=== PATIENT | female | born 1960 | race Caucasian/White ===

== ENCOUNTER 2018-11-17 14:06 | Emergency (ER) | payer OTHER ==
[2018-11-17] MEDS ORDERED: Acetaminophen/HYDROcodone 325-5 MG Tab ONE (14:20)
[2018-11-17] MEDS ORDERED: Ketorolac 10 MG Tab ONE (14:20)
[2018-11-17] MEDS ORDERED: Ketorolac 60 MG/2 ML SDV IM ONE (14:24)
--- NOTE | 2018-11-17 14:31 | EDM.PDOC ---
ED HPI GENERAL MEDICAL PROBLEM - General Stated Complaint: SIDE PAIN Time Seen by Provider: 11/17/18 14:10 Source of Information: Reports: Patient History Limitations: Reports: No Limitations - History of Present Illness Onset: Today Onset Date: 11/17/18 Onset Time: 08:00 Duration: Getting Worse, Waxing/Waning Location: Reports: Abdomen Quality: Reports: Ache Severity: Severe Improves with: Reports: None Worsens with: Reports: None Associated Symptoms: Denies: Confusion, Chest Pain, Cough, Diaphoresis, Fever/ Chills, Headaches, Nausea/Vomiting, Rash, Seizure, Shortness of Breath, Syncope , Weakness - Related Data Allergies Allergy/AdvReac Type Severity Reaction Status Date / Time codeine Allergy Dizziness Verified 09/28/13 08:08 Penicillins Allergy Rash Verified 09/28/13 08:08 Sulfa (Sulfonamide Allergy Rash Verified 09/28/13 08:08 Antibiotics) ED ROS GENERAL - Review of Systems Review Of Systems: See Below Constitutional: Denies: Fever, Chills HEENT: Denies: Ear Pain, Rhinitis, Throat Pain Respiratory: Denies: Shortness of Breath, Cough, Sputum Cardiovascular: Denies: Chest Pain, Lightheadedness GI/Abdominal: Reports: Abdominal Pain. Denies: Constipation, Diarrhea, Distension, Nausea, Vomiting : Denies: Dysuria, Frequency Musculoskeletal: Denies: Joint Pain, Joint Swelling Skin: Denies: Bruising, Pruritis, Rash Neurological: Denies: Confusion, Dizziness, Syncope, Tingling, Weakness ED EXAM, GENERAL - Physical Exam Exam: See Below Exam Limited By: No Limitations General Appearance: Alert, WD/WN, Moderate Distress Eye Exam: Bilateral Eye: EOMI, PERRL Ears: Normal External Exam, Normal Canal, Hearing Grossly Normal, Normal TMs Ear Exam: Bilateral Ear: Auricle Normal, Canal Normal, TM normal Nose: Normal Inspection, Normal Mucosa, No Blood Throat/Mouth: Normal Inspection, Normal Lips, Normal Teeth, Normal Gums, Normal Oropharynx, Normal Voice, No Airway Compromise Head: Atraumatic, Normocephalic Neck: Normal Inspection, Supple, Non-Tender, Full Range of Motion Respiratory/Chest: No Respiratory Distress, Lungs Clear, Normal Breath Sounds, No Accessory Muscle Use, Chest Non-Tender Cardiovascular: Normal Peripheral Pulses, Regular Rate, Rhythm, No Edema, No Gallop, No JVD, No Murmur, No Rub GI/Abdominal: Normal Bowel Sounds, Soft, No Organomegaly, No Distention, No Abnormal Bruit, No Mass, Tender (LLQ on deep palpation, no rebound , no amss felt.). No: Guarding, Rigid, Rebound Course - Vital Signs Text/Narrative:: Pt claims she has been having sudden onset, pain in the LLQ of abdomen since today morning and has progressively got worse. She rates her pain at 8/10, she did receive toradol 60mg IM times one. Her CBC and CMP appears normal. Her UA does show moderate blood. This make me suspicious for a ureteric stone. Pt did receive flomax 0.4mg to relax the ureteric musculature and help pass the stone. Pt's pain seems to have improve after toradol. Pt's CT does show 5mm ureteric stone in the left distal ureter. Pt reassured that she is passing a kidney stone. The pain might be intermittent and last for about 24 hrs before improving. Advised to strain the urine. Discharge on Toradol 10mg to alternate with Vicodin every 4 hrs. Flomax 0.4mg once daily . Plenty of fluids and 1-2 glasses of cranberry juice. Medications can be stopped once the stone is passed. Also if pain does not resolve in 48 hrs, patient should followup in clinic. Last Recorded V/S: Last Vital Signs Temp 97.6 F 11/17/18 14:35 Pulse 72 11/17/18 14:35 Resp 16 11/17/18 14:35 BP 166/84 H 11/17/18 14:35 Pulse Ox 99 11/17/18 14:35 - Orders/Labs/Meds Orders: Active Orders 24 hr Category Date Time Status Kidney Stone Protocol [CT] Stat Exams 11/17/18 15:00 Ordered Labs: Laboratory Tests 11/17/18 11/17/18 11/17/18 Range/Units 14:22 14:30 14:30 WBC 6.7 (4.0-11.0) K/uL RBC 4.06 (3.80-5.80) M/uL Hgb 12.7 (11.5-16.5) g/dL Hct 39.2 (37.0-47.0) % MCV 97 H (76-96) fL MCH 31.3 (27.0-32.0) pg MCHC 32.4 (31.0-35.0) g/dL RDW 12.9 (11.0-16.0) % Plt Count 307 (150-500) K/uL MPV 9.6 (6.0-10.0) fL Neut % (Auto) 54.4 (45.0-70.0) % Lymph % (Auto) 36.1 (20.0-40.0) % [place] % (Auto) 6.7 (3.0-10.0) % Eos % (Auto) 2.2 (1.0-5.0) % Baso % (Auto) 0.6 H (0.0-0.5) % Neut # (Auto) 3.67 (2.00-7.50) K/uL Lymph # (Auto) 2.43 (1.50-4.00) K/uL [place] # (Auto) 0.45 (0.20-0.80) K/uL Eos # (Auto) 0.15 (0.04-0.40) K/uL Baso # (Auto) 0.04 (0.02-0.10) K/uL Sodium 142 (136-145) mmol/L Potassium 3.7 D (3.5-5.1) mmol/L Chloride 107 (98-107) mmol/L Carbon Dioxide 25.1 D (21.0-32.0) mmol/L Anion Gap 13.6 (5.0-15.0) mmol/L BUN 17 D (8-26) mg/dL Creatinine 0.90 D (0.55-1.02) mg/dL Est Cr Clr Drug Dosing 65.45 mL/min Estimated GFR (MDRD) > 60 (>60) MLS/MIN BUN/Creatinine Ratio 18.9 (6-25) Glucose 125 H (74-100) mg/dL Calcium 9.0 (8.5-10.1) mg/dL Total Bilirubin 0.2 D (0.0-1.0) mg/dL AST 21 (15-37) U/L ALT 36 (12-78) U/L Alkaline Phosphatase 50 (46-116) U/L Total Protein 7.5 (6.4-8.2) g/dL Albumin 3.7 (3.4-5.0) g/dL Globulin 3.8 (2.2-4.2) g/dL Albumin/Globulin Ratio 1.0 (0.8-2.0) Urine Color Yellow Urine Appearance Clear (CLEAR) Urine pH 5.5 (5.0-8.0) Ur Specific [place] 1.025 (1.003-1.030) Urine Protein Negative (NEGATIVE) mg/dL Urine Glucose (UA) Negative (NEGATIVE) mg/dL Urine Ketones Negative (NEGATIVE) mg/dL Urine Occult Blood Moderate H (NEGATIVE) Urine Nitrite Negative (NEGATIVE) Urine Bilirubin Negative (NEGATIVE) Urine Urobilinogen 0.2 (0.2-1.0) E.U./dL Ur Leukocyte Esterase Trace H (NEGATIVE) Urine RBC 5-10 H /HPF Urine WBC 0-5 H /HPF Ur Squamous Epith Cells Occasional /HPF Urine Bacteria Few /HPF Meds: Medications Discontinued Medications Generic Name Dose Route Start Last Admin Trade Name Freq PRN Reason Stop Dose Admin Ketorolac Tromethamine 60 mg 11/17/18 14:24 11/17/18 14:34 Toradol IM 11/17/18 14:25 60 mg ONETIME ONE Administration Ketorolac Tromethamine Confirm 11/17/18 14:32 Toradol Administered 11/17/18 14:33 Dose 60 mg .ROUTE .STK-MED ONE Tamsulosin HCl 0.4 mg 11/17/18 14:59 11/17/18 15:03 Flomax PO 11/17/18 15:00 0.4 mg ONETIME ONE Administration Departure - Departure Time of Disposition: 16:00 Disposition: Home, Self-Care 01 Condition: Fair Clinical Impression: Calculus of distal left ureter - Discharge Information *PRESCRIPTION DRUG MONITORING PROGRAM REVIEWED*: Not Applicable *COPY OF PRESCRIPTION DRUG MONITORING REPORT IN PATIENT NA: Not Applicable Instructions: Kidney Stones, [id number], Kidney Stones Referrals: PCP,None [Primary Care Provider] - Additional Instructions: Pt's CBC and CMP are normal.Pt's CT does show 5mm ureteric stone in the left distal ureter. Pt reassured that she is passing a kidney stone. The pain might be intermittent and last for about 24 hrs before improving. Advised to strain the urine. Discharge on Toradol 10mg to alternate with Vicodin every 4 hrs. Flomax 0.4mg once daily . Plenty of fluids and 1-2 glasses of cranberry juice. Medications can be stopped once the stone is passed. Also if pain does not resolve in 48 hrs, patient should followup in clinic. - Problem List & Annotations (1) Calculus of distal left ureter SNOMED Code(s): 449899894 Code(s): N20.1 - CALCULUS OF URETER Status: Acute Current Visit: Yes - Problem List Review Problem List Initiated/Reviewed/Updated: Yes - My Orders Last 24 Hours: My Active Orders 11/17/18 15:00 Kidney Stone Protocol [CT] Stat - Assessment/Plan Last 24 Hours: My Active Orders 11/17/18 15:00 Kidney Stone Protocol [CT] Stat Assessment:: left distal ureteric calculus Plan: Pt claims she has been having sudden onset, pain in the LLQ of abdomen since today morning and has progressively got worse. She rates her pain at 8/10, she did receive toradol 60mg IM times one. Her CBC and CMP appears normal. Her UA does show moderate blood. This make me suspicious for a ureteric stone. Pt did receive flomax 0.4mg to relax the ureteric musculature and help pass the stone. Pt's pain seems to have improve after toradol. Pt's CT does show 5mm ureteric stone in the left distal ureter. Pt reassured that she is passing a kidney stone. The pain might be intermittent and last for about 24 hrs before improving. Advised to strain the urine. Discharge on Toradol 10mg to alternate with Vicodin every 4 hrs. Flomax 0.4mg once daily . Plenty of fluids and 1-2 glasses of cranberry juice. Medications can be stopped once the stone is passed. Also if pain does not resolve in 48 hrs, patient should followup in clinic.
[2018-11-17] MEDS ORDERED: Ketorolac 60 MG/2 ML SDV ONE (14:32)
[2018-11-17] MEDS ORDERED: Tamsulosin 0.4 MG Cap.ER PO ONE (14:59)
--- NOTE | 2018-11-18 09:21 | CT ---
DATE OF SERVICE: 11/17/18 CLINICAL DATA: LLQ pain with microscopic hematuria UNENHANCED ABDOMEN AND PELVIC CT: Multislice acquisition through the abdomen and pelvis without IV or oral contrast was performed. Comparison is made to a prior unenhanced abdomen and pelvic CT dated 11/18/08. There are atelectatic changes in both lung bases. The lung bases are otherwise clear. There is diffuse fatty infiltration of the liver. No focal hepatic lesions. The gallbladder is contracted. No calcified gallstones. The spleen appears normal. The pancreas appears normal. The right and left adrenals appear normal. The right kidney appears normal. There is a small nonobstructing renal calculus on the left. There is a 4 mm distal ureteral calculus on the left located near the ureterovesical junction. There is hydronephrosis and hydroureter proximal to it consistent with obstruction. There is a small amount of fluid within the bladder. It appears grossly normal. No evidence of appendicitis. There is a moderate amount of stool noted within the cecum and ascending colon. No free air. No free fluid. No dilated loops of bowel. No adenopathy. No aortic aneurysm. There is an umbilical hernia containing fat. IMPRESSION: A 4 mm distal ureteral calculus on the left with obstruction. Other findings as discussed above. [id number] [facility]
== END 2018-11-17 16:09 | disposition home or self-care (01) ==
LOC: LB.ED 14:06
DX: N13.2 Hydronephrosis with renal and ureteral calculous obstruction (principal); Z88.0 Allergy status to penicillin; Z88.5 Allergy status to narcotic agent; Z88.2 Allergy status to sulfonamides
CPT/HCPCS: 36415; 74176; 80053; 81001; 85025; 96372; 99284-25; A9270-GY; J1885